=== PATIENT | male | born 2000 | race Caucasian/White ===

== ENCOUNTER 2022-11-19 21:32 | Emergency (ER) | payer BC, SELFPAY ==
[2022-11-19 21:33] VITALS: BP 121/55; PULSE 94; RESP 15; TEMP 36.7; O2SAT 99; BMI 38.4
[2022-11-19] MEDS: 0.9% Normal Saline 1,000 ML 1000 ML IV (21:56)
[2022-11-19] MEDS: Ondansetron 4 MG/2 ML Vial IV (21:57)
--- NOTE | 2022-11-19 22:11 | EDS_ITS ---
HPI HPI - GI History of Present Illness Chief Complaint: Abd Pain Detail of Chief Complaint: Abdominal discomfort, nausea and diarrhea Informant: patient Abdominal Pain/Flank Pain Onset: Today (1599) Context: Sudden Onset Timing: Continuous Quality: Dull Location: Diffuse Current Severity: Mild Maximum Severity: Moderate Worsened by: Nothing Relieved by: Nothing Nausea/Vomiting/Emesis GI Symptom: Positive for Nausea and Vomiting (Self emesis x1) Onset: Hours Diarrhea/Melena/Hematochezia GI Symptom: Negative for Diarrhea, Melena or Hematochezia Associated Symptoms Associated Symptoms: Negative for Dysuria, Frequency, Hematuria or Urgency Narrative Narrative: Patient is a 22-year-old male who had something to eat. He believes he has food poisoning. The food did not taste unusual to him. Significant other did not eat the same food he did. He complained of abdominal discomfort and nausea. He induced emesis x1. He still feels nauseous. States he had 1 bowel movement. It was not watery. He did not notice blood or mucus. He denies fever or chills. He does report dry mouth. He denies increased thirst. He does give orthostatic symptoms. This occurred when he was in the shower and felt nauseous and right after he vomited. This is consistent with a vagal response. Patient denies myalgias arthralgias. Patient denies rash. Patient denies history of inflammatory bowel disorder. Prior similar symptoms: No Recent Illness/Hospitalization: No PFSH PFSH Medical History no medical history no medical history Home Medications dicyclomine 10 mg capsule 20 mg PO TIDAC #20 CAPSULES 11/19/22 [Rx Last Taken Unknown] Allergy/AdvReac Type Severity Reaction Status Date / Time No Known Allergies Allergy Verified 11/19/22 21:37 Surgical History no surgical history no surgical history Social History (Updated 11/19/22 @ 22:[address] Gato Tay MD) household members: significant other Smoking Status: Never smoker ROS ROS ED Constitutional Constitutional ED: Denies chills, fever(s), subjective, sweats or weight loss Gastrointestinal Gastrointestinal: Reports abdominal pain, nausea and vomiting; Denies constipation, diarrhea or melena Genitourinary Genitourinary ED: Denies dysuria, hematuria or urinary frequency Musculoskeletal Musculoskeletal: Denies arthralgias, back pain, myalgias or neck pain Integumentary Denies rash Neurologic Neurologic: Denies headache(s), paresthesias or weakness Endocrine Endocrinology: Denies polydipsia, polyphagia or polyuria EXAM Physical Exam Const Vital Signs: 11/19/22 21:33 Temperature 98.1 F Temperature Source Temporal Pulse Rate 94 Respiratory Rate 15 Blood Pressure 121/55 H Blood Pressure Mean 77 Pulse Ox 99 Oxygen Delivery Method Room Air Positive well nourished, well developed and obese General Appearance ED: well developed and NAD; Negative for pallor Nutritional Appearance: obese HEENT Reports TM's clear and moist mucous membranes normocephalic and atraumatic Tympanic Membrane ED: Yes TM's clear Eyes PERRL and EOMs intact bilaterally General Eye ED: Negative for pale conjunctiva or scleral icterus Neck no lymphadenopathy, supple and no JVD Resp normal respiratory effort and clear to auscultation bilaterally Cardio regular rate, regular rhythm, S1 normal heart sound, S2 normal heart sound and no murmurs GI non-tender, non-distended and no masses Auscultation: normoactive bowel sounds Palpation: soft Back/Spine no CVA tenderness Extremity General Extremety ED: Negative for edema or tenderness General Extremity: Negative for edema Neuro CN's II-XII intact bilaterally, moves all extremities, no sensory deficits noted and gait normal Sensorium / Orientation: alert Psych mental status grossly normal and thought process normal Skin no wounds General Skin Exam: Negative for jaundice or pallor Lesions: no lesions Rashes: no rashes MDM MDM MDM Narrative Medical decision making narrative: Patient presents with nausea, diarrhea and abdominal pain. Suspect this is due to a viral illness. Unable to determine if this is due to food poisoning. Koko siu was told such. Since he clinically has dry mucosa and complains of thirst 1 L normal saline was ordered and Zofran. Will order Bentyl for his crampy abdominal pain that is diffuse. Review of prior records indicates no history of inflammatory bowel disorder. He has no significant past medical history Treatment and Re-Evaluation Narrative: Patient was reassessed at 2240. He does feel better. 750 cc of a liter saline has infused. Will discharge once liter has infused. Patient's been told I do not know the exact cause of his symptoms but doubt food poisoning. Discharge Plan Triage Chief Complaint: Abd Pain ED Provider: Gato Tay Dx/Rx/DC Orders Clinical Impression: Abdominal pain, acute, generalized, Nausea alone, Diarrhea, Mild dehydration Instructions: ED Diarrhea, Unknown Cause Prescriptions: New dicyclomine 10 mg capsule 20 mg PO TIDAC Qty: 20 0RF Primary Care Provider: Lj Savage Referrals: Lj Savage DO [Primary Care Provider] - 1-2 Days if not improving Disposition Disposition: Home, Self Care
[2022-11-19] MEDS: Dicyclomine 10 MG Capsule 20 MG PO (22:32)
[2022-11-19 23:40] VITALS: BP 124/71; PULSE 88; RESP 18; O2SAT 100
== END 2022-11-19 23:40 | disposition home or self-care (01) ==
PROVIDERS: Emergency Provider Emergency Medicine; PCP Family Medicine; Visit Provider Emergency Medicine
DX: R10.9 Unspecified abdominal pain (principal); R11.2 Nausea with vomiting, unspecified; E86.0 Dehydration; R19.7 Diarrhea, unspecified; E66.9 Obesity, unspecified
CPT/HCPCS: 96361; 96374; 99284; J7030; A4216; J2405

== ENCOUNTER 2025-07-06 14:33 | Emergency (ER) | payer OTHER, SELFPAY ==
[2025-07-06 14:35] VITALS: BP 159/97; PULSE 124; RESP 24; TEMP 36.2; O2SAT 100; BMI 43.2
--- NOTE | 2025-07-06 14:54 | EKG12_ITS ---
Test Reason : ARRYTH Blood Pressure : */* mmHG Vent. Rate : 104 BPM Atrial Rate : 104 BPM P-R Int : 150 ms QRS Dur : 98 ms QT Int : 342 ms P-R-T Axes : 53 39 41 degrees QTcB Int : 449 ms Sinus tachycardia Otherwise normal ECG Confirmed by EARL XIAO, MARIEL ([id number]), newspaper managing editor YAS DUGGAN ([id number]) on 07/07/2025 10:03:07 AM Referred By: Confirmed By: MARIEL ELLIOTT MD
--- NOTE | 2025-07-06 14:55 | EX.ED.DYSGE1 ---
HPI History of Present Illness Chief Complaint: Allergic Reaction Narrative Narrative: 24-year-old male past medical history of anxiety/panic attacks presents with his because of sensation that the right side of his throat is swollen. Symptoms started today at around 11:00. This was approximately 4 hours ago. He was concerned that it is in relation to new medication that he started. He states that on Friday, 5 days ago, he started a GLP-1. It was from a compounded pharmacy. He is not sure of the dosing and milligrams but thinks that he may have had to inject 5 mL. His symptoms did not start until today. He denies any nausea or vomiting, no shortness of breath. He states that in relation to this he started having one of his usual panic attacks. He felt sweaty, and started having left arm numbness with his concern about his right side of his throat swelling. He denies any difficulty breathing or difficulty swallowing. He wanted to be evaluated, with concern for allergic reaction. PFSH [facility] Medical History Anxiety Irregular heart beat Non-smoker Home Medications ?Medication ?Instructions ?Recorded ?Last Taken ?Type dicyclomine 10 mg capsule 20 mg (2 x 10 mg) PO TIDAC #20 11/19/22 Unknown Rx CAPSULES Allergy/AdvReac Type Severity Reaction Status Date / Time No Known Allergies Allergy Verified 07/06/25 14:35 Social History household members: significant other Smoking Status: Never smoker ROS ROS ED ROS Narrative Review of systems is positive for sensation of right sided throat swelling. No difficulty breathing or swallowing. No fevers or chills, no nausea or vomiting. No chest pain. [place] left arm numbness and sweatiness associated with panic attack. EXAM Physical Exam Narrative Exam Narrative: Afebrile. Vital signs noted. Nontoxic-appearing. Cardiovascular examination reveals positive tachycardia. Lungs are clear to auscultation bilaterally. Abdomen is soft and nontender with positive bowel sounds, no guarding or rebound. No diaphoresis. HEENT examination is grossly unremarkable. Airway patent. No stridor. No drooling or trismus. No pharyngeal erythema. Handling secretions well. Const Vital Signs: 07/06/25 14:35 Temperature 97.2 F L Temperature Source Temporal Pulse Rate 124 H Respiratory Rate 24 H Blood Pressure 159/97 H Blood Pressure Mean 117 Pulse Ox 100 Oxygen Delivery Method Room Air MDM MDM MDM Narrative Medical decision making narrative: Differential diagnosis includes but not limited to panic attack versus globus hystericus versus retropharyngeal abscess. Patient not diabetic. I do feel that he is probably having more anxiety and panic attack related to this. I do not think he is having an anaphylactic reaction which requires epinephrine as his medication was administered 5 days ago. His pulse ox is 100% on room air without evidence of hypoxia. Patient had concerned about his heart and heart related symptoms. Will obtain an EKG to look for any ST elevation I think he is more tachycardic from anxiety. EKG obtained interpreted by myself independently as sinus tachycardia at 104 bpm without ectopy or acute ST changes. No STEMI. X-ray of the soft tissue of the neck on my independent interpretation shows airway to be patent, no retropharyngeal swelling. I reviewed the radiology report which confirms my independent interpretation. Upon repeat examination at approximately 1645, heart rate is in the 90s. He states he has benzodiazepines at home and was wondering if he could take another if his anxiety worsens. He was told to take this as directed and follow-up with his primary care provider. I do not feel that he needs epinephrine or that he needs an EpiPen regarding his GLP-1 medication as once again I do not feel that he was having an anaphylactic reaction. Disposition is discharged home in stable condition. Return instructions were reviewed. History & Record Review Discussion w/independent historian: Patient Additional record(s) reviewed:: Prior ED visit (Last seen in 2022) Radiography Diagnostic Testing: Clinical Impression(s) from Imaging Studies Soft Tissue Neck X-Ray 07/06/25 15:35 IMPRESSION: Unremarkable radiographic appearance of the neck soft tissues, although the epiglottis is poorly visualized due to patient's body habitus. Visualized airway is patent. Reading Location: [facility] Discharge Plan Triage Chief Complaint: Allergic Reaction Other Complaint: Anxiety ED Provider: Rommel Maria Dx/Rx/DC Orders Clinical Impression: Panic attack, Throat fullness Instructions: ED Pain, Acute, Uncertain Cause, ED Panic Attack Prescriptions: No Action dicyclomine 10 mg capsule 20 mg PO TIDAC Qty: 20 0RF Primary Care Provider: Lindsey Levine Referrals: Care Physician,No Primary [Non-Staff, Medical] Activity Restrictions/Additional Instructions: Follow-up with your primary care provider. Return with new or worsening symptoms. You can take your benzodiazepine as previously directed. Print Language: Serbian Disposition Disposition: Home, Self Care
--- NOTE | 2025-07-06 15:35 | RAD_ITS ---
PROCEDURE: NECK FOR SOFT TISSUE 07/06/2025 REASON FOR EXAM: THROAT PAIN TECHNIQUE: Procedure Code: RADNE Modality: DX Procedure: NECK FOR SOFT TISSUE COMPARISON: None. FINDINGS: Unremarkable radiographic appearance of the neck soft tissues. No prevertebral soft tissue swelling. The epiglottis is poorly visualized due to patient's body habitus. The airway is patent. No unusual mineralization. Visualized osseous structures are unremarkable. RAD/Neck for Soft Tissue IMPRESSION: Unremarkable radiographic appearance of the neck soft tissues, although the epi glottis is poorly visualized due to patient's body habitus. Visualized airway is patent. Reading Location: [id number]
[2025-07-06 17:02] VITALS: BP 118/66; PULSE 61; RESP 14; TEMP 37.2; O2SAT 99
== END 2025-07-06 17:03 | disposition home or self-care (01) ==
PROVIDERS: Emergency Provider Emergency Medicine; PCP Internal Medicine; Visit Provider Emergency Medicine
DX: F41.0 Panic disorder [episodic paroxysmal anxiety] (principal); Z79.85 Long-term (current) use of injectable non-insulin antidiabetic drugs
CPT/HCPCS: 70360; 93005; 99283; A4216